=== PATIENT | female | born 1995 | race African-American/Black ===

== ENCOUNTER 2016-09-09 19:20 | Emergency (ER) | payer OTHER ==
[~2016-09-09] VITALS: Ht 165.1 cm; Wt 101.0 kg
[~2016-09-09 19:20] MED LIST: HYDR2.5%T PR
[2016-09-09 19:30] VITALS: BP 141/82; PULSE 84; RESP 16; O2SAT 100
[2016-09-09] MEDS ORDERED: ACETAMINOPHEN/HYDROcodone 325 MG/5 MG TAB PO ONE (19:30)
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
[2016-09-09 20:20] LABS: AUTOMATED NEUTROPHIL # 2.6 TH/MM3 (1.8-7.7); BASOPHIL # 0.1 TH/MM3 (0-0.2); EOSINOPHIL # 0.2 TH/MM3 (0-0.4); EOSINOPHIL % 2.9 % (0.0-4.0); HEMATOCRIT 35.7 % (35.0-46.0); HEMO FLAGS DIFF FINAL; LYMPH % 39.6 % (9.0-44.0); LYMPHOCYTE # 2.1 TH/MM3 (1.0-4.8); MEAN CELL VOLUME 78.9 FL (80.0-100.0); MEAN CORPUSCULAR HEMOGLOBIN 25.3 PG (27.0-34.0); MONO % 7.3 % (0.0-8.0); NEUT % 49.2 % (16.0-70.0); PLATELET COUNT 262 TH/MM3 (150-450); RED BLOOD COUNT 4.52 MIL/MM3 (4.00-5.30); RED CELL DISTRIBUTION WIDTH 14.9 % (11.6-17.2); WHITE BLOOD COUNT 5.2 TH/MM3 (4.0-11.0)
[2016-09-09] MEDS ORDERED: MORPHINE SULFATE 4 MG/ML INJ IV PUSH ONE (20:30)
[2016-09-09] MEDS ORDERED: ONDANSETRON HCL 4 MG/2 ML VIAL IV PUSH ONE (20:30)
[2016-09-09 20:46] LABS: POTASSIUM 3.6 MEQ/L (3.5-5.1)
[2016-09-09] MEDS ORDERED: IOHEXOL 350 MG/ML 10 ML VIAL (for RAD DIAG) IV ONE (21:09)
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
[2016-09-09] MEDS ORDERED: KETOROLAC TROMETHAMINE 30 MG/ML (IVP) VIAL IV PUSH ONE (21:30)
[2016-09-09 21:34] VITALS: BP 120/66; PULSE 77; RESP 18; O2SAT 100
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
[2016-09-09] MEDS ORDERED: ROBA500T PO (21:52)
[2016-09-09] MEDS ORDERED: HYDR-3533 PO (21:52)
[2016-09-09] MEDS ORDERED: IBUP800T23 PO (21:52)
[2016-09-09] MEDS ORDERED: ORPHENADRINE INJ 60 MG/2 ML AMP IM ONE (22:00)
[2016-09-09 22:22] VITALS: BP 115/66; PULSE 85; RESP 16; O2SAT 100
== END 2016-09-09 22:36 | disposition home or self-care (01) ==
LOC: NEPC 19:20
DX: S13.4XXA Sprain of ligaments of cervical spine, initial encounter (principal); S80.11XA Contusion of right lower leg, initial encounter; S29.012A Strain of muscle and tendon of back wall of thorax, initial encounter; V43.52XA Car driver injured in collision with other type car in traffic accident, initial encounter; Y92.410 Unspecified street and highway as the place of occurrence of the external cause; Z88.0 Allergy status to penicillin; Z72.0 Tobacco use; F12.90 Cannabis use, unspecified, uncomplicated
CPT/HCPCS: 70450; 71010; 71260; 72125; 72128; 73590; 74177; 80048; 84703; 85025; 96372; 96374; 96375; 99285; E0113; J1885; J2270; J2360; J2405; L0120; Q9967

== ENCOUNTER 2016-11-19 14:02 | Emergency (ER) | payer SELFPAY ==
[~2016-11-19 14:02] MED LIST changes: +HYDR-3533 PO; -HYDR2.5%T PR; +IBUP800T23 PO; +ROBA500T PO
[2016-11-19 14:05] VITALS: BP 116/74; PULSE 64; RESP 16; TEMP 98; O2SAT 99
== END 2016-11-19 15:34 | disposition left against medical advice (07) ==
LOC: NED 14:02
DX: R68.89 Other general symptoms and signs (principal)
CPT/HCPCS: 99281

== ENCOUNTER 2017-02-05 07:47 | Emergency (ER) | payer SELFPAY ==
[~2017-02-05] VITALS: Ht 165.1 cm; Wt 100.0 kg
[2017-02-05 07:49] VITALS: BP 138/66; PULSE 66; RESP 15; TEMP 98.3; O2SAT 99
[2017-02-05] MEDS ORDERED: IBUP800T23 PO (08:14)
[2017-02-05] MEDS ORDERED: CLIN1CAP5 PO (08:14)
[2017-02-05] MEDS ORDERED: PERI0.126 SWISH-SPIT (08:16)
--- NOTE | 2017-02-05 08:16 | PD ---
HPI Chief Complaint: Oral / Dental Pain or Problem Time Seen by Provider: 08:13 Travel History International Travel<30 days: No Contact w/Intl Traveler<30days: No Traveled to known affect area: No History of Present Illness HPI 22-year-old female presents to the emergency Department with complaint of right lower dental pain on and off 1 month with worsening of symptoms yesterday. Denies fever, vomiting. Denies facial edema, erythema. Says the pain is constant and doesn't know what makes it worse. Took ibuprofen yesterday for symptom management. Has no other medical complaints. Allergies to penicillin. No other modifying factors or associated signs and symptoms. PFSH Past Medical History ?: Not : 0 Social History Alcohol Use: Yes (Social) Tobacco Use: Yes Substance Use: Yes (marijuana) Allergies-Medications (Allergen,Severity, Reaction): Coded Allergies: Penicillin (Verified Allergy, Severe, 09/09/16) Reported Meds & Prescriptions Reported Meds & Active Scripts Active Peridex Liq (Chlorhexidine Gluconate (Mouth) Liq) 0.12% Soln 15 Ml SWISH-SPIT BID 10 Days Ibuprofen 800 Mg Tab 800 Mg PO Q6HR PRN Clindamycin (Clindamycin HCl) 150 Mg Cap 300 Mg PO Q6H 10 Days Ibuprofen 800 Mg Tab 800 Mg PO Q8H PRN Robaxin (Methocarbamol) 500 Mg Tab 500 Mg PO QID PRN Lortab (Hydrocodone-Acetaminophen) 5-325 Mg Tab 1 Tab PO Q6H PRN Review of Systems Except as stated in HPI: all other systems reviewed are Neg Physical Exam Narrative GENERAL: Well-nourished, well-developed female patient, in no acute distress; afebrile, nontoxic-appearing SKIN: Warm and dry. HEAD: Atraumatic. Normocephalic. No facial edema, erythema, tenderness on palpation. No lymphadenopathy. EYES: Pupils equal and round. No scleral icterus. No injection or drainage. ENT: Mucosa pink and moist. Airway patent. MOUTH: Mucous membranes moist, no lesions, tongue and gums appear normal. Right lower second molar with tenderness on palpation. Surrounding gingiva is without erythema, edema, drainage. No obvious abscess noted. NECK: Trachea midline. No lymphadenopathy. CARDIOVASCULAR: Regular rate. RESPIRATORY: No accessory muscle use. GASTROINTESTINAL: Rounded. MUSCULOSKELETAL: No obvious deformities. No clubbing. No cyanosis. No edema. NEUROLOGICAL: Awake and alert. Oriented 3. No obvious cranial nerve deficits. Motor grossly within normal limits. Normal speech. PSYCHIATRIC: Appropriate mood and affect; insight and judgment normal. Data Data Last Documented VS Vital Signs Date Time Temp Pulse Resp B/P Pulse Ox O2 Delivery O2 Flow Rate FiO2 02/05/17 07:49 98.3 66 15 138/66 99 Orders Ketorolac Inj (Toradol Inj) (02/05/17 08:30) [facility] Medical Decision Making Medical Screen Exam Complete: Yes Emergency Medical Condition: Yes Medical Record Reviewed: Yes Differential Diagnosis Dentalgia, dental abscess, dental caries Narrative Course 22-year-old female with dentalgia to right lower second molar. No facial edema or erythema. No lymphadenopathy. Patient is afebrile and nontoxic-appearing. Denies fever, vomiting. Toradol administered in the ER. Emergency dental information sheet provided. Clindamycin, ibuprofen, Peridex mouth rinse prescribed for home. Instructed patient to follow up with dentist. Patient verbalizes understanding and agreement with treatment plan. Patient is medically cleared and stable for discharge. Discussed reasons to return to the emergency department. Instructed patient to follow up with primary care provider. Patient agrees with treatment plan. The patients vital signs are stable and the patient is stable for outpatient follow-up and treatment. Patient discharged home, stable and in no acute distress. Diagnosis Primary Impression: Dentalgia Referrals: Dentist Primary Care Physician Patient Instructions: Dental Abscess (ED), Dental Caries (ED), General Instructions, Toothache (ED) Departure Forms: Tests/Procedures, Work Release Enter return to work date: Feb 05, 2017 Additional Instructions: Complete full course of antibiotics Ibuprofen or Tylenol as directed and as needed to reduce pain and inflammation Warm or cool compresses to the affected area Follow-up with dentist Follow-up with primary care provider Return to emergency department immediately with worsening of symptoms Med/Other Pt SpecificInfo: Prescription(s) given Scripts Chlorhexidine Gluconate (Mouth) Liq (Peridex Liq)0.12% Soln15 Ml SWISH-SPIT BID 10 Days Ref 0 Prov:Sydnie DoeP 02/05/17 Ibuprofen 800 Mg [id number] Mg PO Q6HR PRN (PAIN) #30 TAB Ref 0 Prov:Sydnie DoeP 02/05/17 Clindamycin 150 Mg [id number] Mg PO Q6H 10 Days Ref 0 Prov:Sydnie Doe 02/05/17 Disposition: 01 DISCHARGE HOME Condition: Stable Sydnie Doe Feb 05, 2017 08:16
[2017-02-05] MEDS ORDERED: KETOROLAC TROMETHAMINE 60 MG/2 ML (IM) VIAL IM ONE (08:30)
== END 2017-02-05 08:40 | disposition home or self-care (01) ==
LOC: NEPD 07:47
DX: K08.89 Other specified disorders of teeth and supporting structures (principal); Z88.0 Allergy status to penicillin; Z72.0 Tobacco use; F12.90 Cannabis use, unspecified, uncomplicated
CPT/HCPCS: 96372; 99284; J1885